=== PATIENT | male | born 1980 | race Caucasian/White ===

== ENCOUNTER 2020-05-12 17:03 | Emergency (ER) | payer SELFPAY ==
[2020-05-12] MEDS ORDERED: Bacitracin/Neomycin/Polymyxin B Oint 0.9 GM U/D Packet TOP ONE (17:12)
--- NOTE | 2020-05-12 18:13 | EDM.PDOC ---
ED HPI GENERAL MEDICAL PROBLEM - General Chief Complaint: Upper Extremity Injury/Pain Stated Complaint: stick in my thumb Time Seen by Provider: 05/12/20 17:12 Source of Information: Reports: Patient History Limitations: Reports: No Limitations - History of Present Illness INITIAL COMMENTS - FREE TEXT/NARRATIVE: Patient comes to ER with large wooden splinter imbedded near base of left thumb. This happened as patient was throwing pieces of wood. No bleeding. Unable to pull it out himself. Tetanus is UTD per patient. [facility]. Able to move hand/fingers well. No other complaints - Related Data Allergies Allergy/AdvReac Type Severity Reaction Status Date / Time No Known Allergies Allergy Verified 05/12/20 17:17 Home Meds: Home Meds . [No Known Home Meds] 05/12/20 [History] Past Medical History - Past Health History Medical/Surgical History: Denies Medical/Surgical History Social & Family History - Tobacco Use Smoking Status *Q: Never Smoker Second Hand Smoke Exposure: No - Caffeine Use Caffeine Use: Reports: Soda - Alcohol Use Alcohol Use History: Yes - Recreational Drug Use Recreational Drug Use: No Review of Systems - Review of Systems Review Of Systems: See Below Skin: Reports: Other (splinter imbedded in skin base of left thumb) ED EXAM, GENERAL - Physical Exam Exam: See Below Exam Limited By: No Limitations General Appearance: Alert, WD/WN, No Apparent Distress Eye Exam: Bilateral Eye: EOMI, PERRL Throat/Mouth: Normal Voice, No Airway Compromise Head: Atraumatic, Normocephalic Respiratory/Chest: No Respiratory Distress Extremities: Other (exam of left hand shows a thin piece of wood penatrating skin through and through near base of left thumb. Placement of splinter is superficial. Does not appear to involve deeper hand structure/bone/joint/large vessel. No bleeding noted. Able to move fingers/wrist on affected side. ) Neurological: Alert, Oriented, Normal Cognition, Normal Gait, No Motor/Sensory Deficits ED TRAUMA EXTREMITY PROCEDURES - Foreign Body Removal Consent Obtained: Patient Performing Doctor:: Angela Sunshine Foreign Body Other Location Comment:: left thenar eminence Anesthesia Type: Local Complications:: No Comments:: area around splinter penetration infiltrated with 1% Lidocaine. Splinter successfully pulled out once area anesthetized. Course - Vital Signs Last Recorded V/S: Last Vital Signs Temp 36.1 C 05/12/20 17:22 Pulse 75 05/12/20 17:22 Resp 20 05/12/20 17:22 BP 115/75 05/12/20 17:22 Pulse Ox 99 05/12/20 17:22 - Orders/Labs/Meds Meds: Medications Discontinued Medications Generic Name Dose Route Start Last Admin Trade Name Daniel PRN Reason Stop Dose Admin Lidocaine HCl 5 ml 05/12/20 17:12 05/12/20 18:00 Xylocaine-Mpf 1% INJECT 05/12/20 17:13 5 ml ONETIME ONE Administration Neomycin/Polymyxin/Bacitracin 1 each 05/12/20 17:12 05/12/20 18:00 Triple Antibiotic Oint TOP 05/12/20 17:13 1 each ONETIME ONE Administration - Re-Assessments/Exams Free Text/Narrative Re-Assessment/Exam: 05/12/20 19:59 Splinter removed. Hand soaked in Betadine after procedure/splinter track flushed with saline. Topical antibiotic/bandage placed by nursing staff. Wound care reviewed. To follow up as needed if any problems develop. Departure - Departure Time of Disposition: 18:10 Disposition: Home, Self-Care 01 Condition: Good Clinical Impression: Splinter in skin - Discharge Information *PRESCRIPTION DRUG MONITORING PROGRAM REVIEWED*: Not Applicable *COPY OF PRESCRIPTION DRUG MONITORING REPORT IN PATIENT JAIRO: Not Applicable Instructions: Puncture Wound Forms: ED Department Discharge Additional Instructions: Keep clean and dry. Return for recheck if you notice increased redness/warmth/swelling of left hand. [facility] Thursday. If you are due, get that updated this week. Call us if you have have any questions or concerns. Sepsis Event Note (ED) - Evaluation Sepsis Screening Result: No Definite Risk - Focused Exam Vital Signs: Vital Signs Temp Pulse Resp BP Pulse Ox 05/12/20 17:22 36.1 C 75 20 115/75 99
== END 2020-05-12 18:15 | disposition home or self-care (01) ==
LOC: LL.ED 17:03
DX: S60.352A Superficial foreign body of left thumb, initial encounter (principal); W45.8XXA Other foreign body or object entering through skin, initial encounter
CPT/HCPCS: 99283; J2001

== ENCOUNTER 2023-04-07 14:00 | Emergency (ER) | payer OTHER | END 2023-04-07 16:14 | disposition home or self-care (01) | LOC: LL.ED 14:00 | DX: H61.23 Impacted cerumen, bilateral (principal) | CPT/HCPCS: 99282 ==